=== PATIENT | female | born 1930 | race African-American/Black ===

== ENCOUNTER 2017-03-12 13:50 | Inpatient (IN) | payer OTHER ==
[~2017-03-12] VITALS: Ht 165.1 cm; Wt 71.7 kg
--- NOTE | ~2017-03-12 | 2DMMODE ---
[facility] [address] [place] [address] 2 D/M-MODE ECHOCARDIOGRAM Name: VINCENT ORNELAS Room #: 428-P ADM IN M.R.#: [id number] Admission: 03/12/17 Attend Phys: Mireya Callaway Discharge: Date of : [birth year] Date of Service: 03/13/17 1245 Report #: [id number] THIS REPORT FOR: //name// APPROVED REPORT Study performed: 03/13/2017 10:46:14 EXAM: Comprehensive 2D, Doppler, and color-flow Echocardiogram Patient Location: In-Patient Room #: 428 Status: routine Other Information Study Quality: Adequate Indications CVA/TIA Hx Afib, OR 2D Dimensions LVEF(%): 55.49 (>50%) IVSd: 14.98 (7-11mm) LVOT Diam: 16.75 (18-24mm) LVDd: 29.28 mm PWd: 14.56 (7-11mm) LVDs: 21.16 (25-40mm) Aortic Root: 23.21 mm Davis's LVEF: 55.49 % Aortic Valve AoV Peak Emiliano.: 1.90 m/s AO Peak Gr.: 14.41 mmHg LVOT Max P.18 mmHg LVOT Max V: 0.89 m/s KATHY Vmax: 1.03 cm2 Mitral Valve E/A Ratio: 2.5 MV Decel. Time: 172.25 ms MV E Max Emiliano.: 1.26 m/s MV A Emiliano.: 0.50 m/s MV PHT: 49.95 ms Pulmonary Valve PV Peak Emiliano.: 0.91 m/s PV Peak Gr.: 3.32 mmHg Tricuspid Valve [facility] [address] [place] [address] 2 D/M-MODE ECHOCARDIOGRAM Name: VINCENT ORNELAS Room #: 428-P [facility] IN [facility].#: [id number] Admission: 03/12/17 Attend Phys: Mireya Callaway Discharge: Date of : [birth year] Date of Service: 03/13/17 1245 Report #: [id number] TR Peak Emiliano.: 3.49 m/s TR Peak Gr.: 49.08 mmHg Left Ventricle The left ventricle is normal size. There is normal LV segmental wall motion. Moderate to severe concentric left ventricular hypertrophy. The left ventricular systolic function is normal. The left ventricular ejection fraction is within the normal range. LVEF is 60-65%. Severe diastolic dysfunction is present (restrictive filling). Right Ventricle The right ventricle is normal size. The right ventricular systolic function is normal. Atria Left atrium appears dilated. Injection of bubbles documented no interatrial shunt. Right atrium appears dilated. Aortic Valve Aortic valve is calcified, trileaflet No aortic regurgitation is present. There is no aortic valvular stenosis. Mitral Valve Moderate mitral annular calcification. Mild to moderate mitral regurgitation. Tricuspid Valve The tricuspid valve is normal in structure. There is moderate tricuspid regurgitation. There is moderate pulmonary hypertension with an estimated PAP of 49 mmHg plus the right atrial pressure. Pulmonic Valve The pulmonary valve is normal in structure. Mild pulmonic regurgitation. Great Vessels The aortic root is normal in size. IVC is not well visualized. Pericardium There is no pericardial effusion. Left pleural effusion noted. <Conclusion> [facility] [address] [place] [address] 2 D/M-MODE ECHOCARDIOGRAM Name: VINCENT ORNELAS Room #: 428-P [facility] IN .R.#: [id number] Admission: 03/12/17 Attend Phys: Mireya Callaway Discharge: Date of : [birth year] Date of Service: 03/13/17 1245 Report #: [id number] The left ventricular systolic function is normal. There is normal LV segmental wall motion. LVEF is 60-65%. Moderate to severe LVH Severe diastolic dysfunction is present (restrictive filling). Aortic valve is calcified, trileaflet. No aortic regurgitation or stenosis Moderate mitral annular calcification. Mild to moderate mitral regurgitation. There is moderate pulmonary hypertension with an estimated PAP of 49 mmHg plus the right atrial pressure. There is no pericardial effusion. <ELECTRONICALLY SIGNED> By: Garrick Kimball MD, [facility] 03/13/17 1245 1245 1245 Garrick Kimball MD, FACC /INF
--- NOTE | ~2017-03-12 | EKG ---
[address] [address] ELECTROCARDIOGRAM REPORT Name: VINCENT ORNELAS Room #: 428-P ADM IN M.R.#: [id number] Admission: 03/12/17 Attend Phys: Mireya Rogers Discharge: Date of : [birth year] Report #: [id number] THIS REPORT FOR: //name// [facility] ED Test Date: 2017-03-12 Test Time: 14:49:45 Pat Name: VINCENT ORNELAS Department: Room: 428 Gender: F [employer]: Jackie ALBARRAN : 1930 Requested By: Sindhu Cannon Order Number: [id number] MD: Ronald Damon Measurements Intervals [place] Rate: 58 P: HI: QRS: -40 QRSD: 147 T: 81 QT: 444 QTc: 437 Interpretive Statements Atrial fibrillation Left bundle branch block Compared to ECG 03/24/2014 21:30:39 AV block, advanced (high-grade) now present Left-axis deviation no longer present Electronically Signed On 03-13-2017 13:52:54 CDT by Ronald Damon [email or web address] <ELECTRONICALLY SIGNED> By: Ronald Damon MD 03/13/17 1352 1449 1449 Ronald Damon MD /EPI
[~2017-03-12 13:50] MED LIST: AMBIEN 5 MG TABL5 M1 PO; ASA81BEC PO; BARRIER CREAM; GABAPENTIN300 MG/6 M PO; LANOXIN 0.120.125 M1 PO; MIRALAX17 GM PO; NEURONTIN 300300 M1 PO; OMEPRAZOLE10 MG PO; PRILOSEC 20 MG20 MG PO; TOPROL XL100 MG PO; TOPROL XL25 MG PO; TRAZODONE 150150 M1 PO; TRAZODONE HCL50 MG PO; TYLENOL325 MG PO; ULTRAM 50MG TAB50 MG PO; VITAMIN B-1001 EACH PO; VITAMIN D1000 UNI1 PO
[2017-03-12 13:51] VITALS: BP 138/76
[2017-03-12 14:53] LABS: ABSOLUTE NEUTROPHILS 3.9 thou/uL (1.4-8.2); BASOPHILS 0.8 % (0.0-2.0); EOSINOPHILS 6.6 % (0.0-3.0); HEMATOCRIT 42.2 % (37.0-47.0); HEMOGLOBIN 14.2 gm/dL (12.0-15.0); LYMPHOCYTES 17.5 % (24.0-44.0); MANUAL DIFF NO; MCH 36.2 pg (26.0-34.0); MCHC 33.5 g/dL (28.0-37.0); MCV 107.9 fL (80.0-100.0); MONOCYTES 11.8 % (1.0-8.0); PLATELET COUNT 184 thou/uL (150-400); POLYS 63.3 % (36.0-66.0); RBC 3.92 mil/uL (4.20-5.00); RDW 14.8 % (10.5-14.5); WBC 6.2 thou/uL (4.0-11.0)
[2017-03-12 14:59] LABS: CALCIUM 9.6 mg/dL (8.5-10.1); CREATININE 0.9 mg/dL (0.6-1.0); POTASSIUM 4.2 mmol/L (3.5-5.1)
[2017-03-12 15:05] LABS: URINE BILIRUBIN NEGATIVE (Negative); URINE BLOOD TRACE (Negative); URINE COLOR YELLOW; URINE GLUCOSE-RANDOM* NEGATIVE (Negative); URINE KETONES NEGATIVE (Negative); URINE NITRITE POSITIVE (Negative); URINE PROTEIN (DIPSTICK) NEGATIVE (Negative); URINE SPECIFIC GRAVITY 1.015 (1.003-1.035); URINE UROBILINOGEN 0.2 E.U./dl (0.2-1.0)
[2017-03-12 15:17] LABS: CASTS None Seen /LPF (None Seen); CRYSTALS None Seen /LPF (None Seen); SQUAMOUS 4-10 Moderate /LPF (0-3)
[2017-03-12 15:18] LABS: BACTERIA >30 Many /HPF (None Seen); URINE RBC None Seen /HPF (0-2); URINE WBC 0-5 Rare /HPF (0-5)
[2017-03-12 15:53] LABS: CHOLESTEROL 156 mg/dL (<200); HDL CHOLESTEROL 39 mg/dL (>40); LDL CHOLESTEROL 106 mg/dL (<100); TRIGLYCERIDE 57 mg/dL (<150); VLDL 11 mg/dL (<40)
[2017-03-12 16:51] VITALS: BP 132/55
[2017-03-12 17:21] VITALS: BP 155/115
[2017-03-12 17:36] VITALS: BP 113/77
[2017-03-12] MEDS ORDERED: ASPIRIN325 PO (18:02)
[2017-03-12 20:25] VITALS: BP 126/83
[2017-03-13 01:59] LABS: HEMATOCRIT 41.5 % (37.0-47.0); HEMOGLOBIN 13.5 gm/dL (12.0-15.0); MCH 35.3 pg (26.0-34.0); MCHC 32.5 g/dL (28.0-37.0); MCV 108.5 fL (80.0-100.0); RBC 3.83 mil/uL (4.20-5.00); RDW 14.5 % (10.5-14.5)
[2017-03-13 05:55] VITALS: BP 101/69
[2017-03-13 08:13] VITALS: BP 137/62
[2017-03-13 15:15] VITALS: BP 137/62
[2017-03-13 15:55] VITALS: BP 142/67
[2017-03-13 20:46] VITALS: BP 151/89
[2017-03-14 03:57] VITALS: BP 113/55
[2017-03-14 08:03] VITALS: BP 174/107
[2017-03-14] MEDS ORDERED: CEFDINIR300 MG PO (08:46)
[2017-03-14] MEDS ORDERED: CLOPIDOGREL75 MG PO (08:47)
[2017-03-14] MEDS ORDERED: ATORVASTATIN CA20 MG PO (08:47)
== END 2017-03-14 18:00 | disposition home health service (06) | DRG 65 ==
LOC: ER 13:50 → 4E 15:05 → EROBS 15:05 → 4E 16:20
PROVIDERS: Emergency Medicine; Hospitalist
DX: I63.411 Cerebral infarction due to embolism of right middle cerebral artery (principal); N39.0 Urinary tract infection, site not specified; G30.9 Alzheimer's disease, unspecified; F02.80 Dementia in other diseases classified elsewhere, unspecified severity, without behavioral disturbance, psychotic disturbance, mood disturbance, and anxiety; I48.91 Unspecified atrial fibrillation; B96.1 Klebsiella pneumoniae [K. pneumoniae] as the cause of diseases classified elsewhere; Z85.3 Personal history of malignant neoplasm of breast; Z92.3 Personal history of irradiation; Z79.82 Long term (current) use of aspirin; Z79.899 Other long term (current) drug therapy; Z74.01 Bed confinement status
CPT/HCPCS: 10183